=== PATIENT | female | born 1960 | race Caucasian/White ===

== ENCOUNTER → 2020-08-10 | Outpatient (CLI) | payer OTHER | LOC: MRI 09:56 → EDSTATUS 10:15 | DX: M54.2 Cervicalgia (principal); M54.5 Low back pain; M43.16 Spondylolisthesis, lumbar region; M51.36 Other intervertebral disc degeneration, lumbar region; M25.78 Osteophyte, vertebrae; M48.02 Spinal stenosis, cervical region; M48.03 Spinal stenosis, cervicothoracic region; R93.7 Abnormal findings on diagnostic imaging of other parts of musculoskeletal system; M43.13 Spondylolisthesis, cervicothoracic region; Z98.890 Other specified postprocedural states | CPT/HCPCS: 36415; 72148; 72156; 82565; 84520; A9577 ==

== ENCOUNTER → 2020-10-18 | Outpatient (CLI) | payer OTHER | LOC: KOH-I 10:29 | DX: M54.5 Low back pain (principal); M43.16 Spondylolisthesis, lumbar region | CPT/HCPCS: 72100 ==

== ENCOUNTER → 2021-07-02 | Outpatient (CLI) | payer OTHER | LOC: CT 09:25 | DX: M43.16 Spondylolisthesis, lumbar region (principal); M43.14 Spondylolisthesis, thoracic region; M47.814 Spondylosis without myelopathy or radiculopathy, thoracic region; M48.04 Spinal stenosis, thoracic region; M47.816 Spondylosis without myelopathy or radiculopathy, lumbar region; M25.78 Osteophyte, vertebrae | CPT/HCPCS: 36415; 72131; 72146; 72158; 82565; A9577 ==

== ENCOUNTER → 2021-07-18 | Outpatient (CLI) | payer OTHER | LOC: CT 10:03 | DX: R16.0 Hepatomegaly, not elsewhere classified (principal); K76.9 Liver disease, unspecified | CPT/HCPCS: 74170; Q9967 ==

== ENCOUNTER → 2021-12-20 | Outpatient (CLI) | payer MEDICARE | LOC: KOH-I 10:30 | DX: S89.91XA Unspecified injury of right lower leg, initial encounter (principal); R60.9 Edema, unspecified | CPT/HCPCS: 93971 ==